=== PATIENT | male | born 1990 | race Caucasian/White ===

== ENCOUNTER 2017-08-24 21:46 | Emergency (ER) | payer SELFPAY ==
[~2017-08-24] VITALS: Ht 167.6 cm; Wt 81.6 kg
[~2017-08-24 21:46] MED LIST: CIPR500T78 PO; HYDR-3714 PO; HYDR-757 PO; METR500T PO; SULF1TAB35 PO
--- OUTSIDE RECORDS SUMMARY | 2017-08-24 21:52 | XMS REPORT ---
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 Info Not Available Non Drug Allergy Problems Problem Type Condition Code Onset Dates Condition Status Problem Pilonidal cyst with abscess 685.0 Active Problem Inguinal hernia without mention of obstruction or gangrene, unilateral or unspecified, (not specified as recurrent) 550.90 Active Problem Pilonidal cyst without mention of abscess 685.1 Active Assessment Tinea cruris B35.6 Active Assessment STD exposure Z20.2 Active Medications No Known Medications Procedures Procedure Coding System Code Date Office Visit, Est Pt., Level 3 CPT-4 43884 Sep 15, 2015 Vital Signs Date/Time: Sep 15, 2015 Temperature 98.9 F Weight 182.4 lbs Height 67 in BMI 28.56 Index Blood Pressure Diastolic 86 mmHg Blood Pressure Systolic 130 mmHg Cardiac Monitoring Heart Rate 112 bpm Results No Known Results Summary Purpose eClinicalWorks Submission
--- OUTSIDE RECORDS SUMMARY | 2017-08-24 21:53 | XMS REPORT | Continuity of Care Document ---
Author Author [facility] Address Unknown Phone Unavailable Allergies There is no data. Medications There is no data. Problems Date Dx Coded Attending Type Code Diagnosis Diagnosed By 08/31/2012 685.1 PILONIDAL CYST 08/31/2012 LAUREL ALLEN DO 685.1 PILONIDAL CYST 02/20/2014 LAUREL ALLEN DO 550.90 UNILATERAL OR UNSPECIFIED INGUINAL HERNIA WITHOUT OBSTRUCTION OR GANGRENE 02/20/2014 LAUREL ALLEN DO 685.0 PILONIDAL CYST WITH ABSCESS Procedures Code Description Performed By Performed On GENERAL GRUPO CAIN 02/20/2014 Results There is no data. Encounters ACCT No. Visit Date/Time Discharge Status Pt. Type Provider Facility Loc./Unit Complaint [id number] 02/20/2014 13:41:00 02/20/2014 23:59:59 [facility] Outpatient LAUREL ALLEN DO [id number] 08/31/2012 13:25:00 08/31/2012 23:59:59 [facility] Outpatient
--- NOTE | 2017-08-24 22:24 | ED GU-Male ---
General Stated Complaint: SWOLLEN TESTICLE Source: patient Exam Limitations: no limitations History of Present Illness Time seen by provider: 22:12 Initial Comments Patient present to ER by private conveyance with a chief complaint that about 1 daily started having some swelling and pain in his left testicle. He said several years ago he had a mass in his scrotum and was diagnosed as an inguinal hernia and he had it repaired. No other surgical or past medical history significant. He is not having any fevers, chills, nausea, vomiting, diarrhea, constipation, dysuria, discharge. He is sexually active with women only and uses a condom sometimes. None of his partners have told him that they have an STD. Allergies and Home Medications Allergies Coded Allergies: No Known Drug Allergies (Unverified , 10/28/14) Home Medications No Active Prescriptions or Reported Meds Constitutional: No chills, No diaphoresis, No fever, No malaise Respiratory: No cough, No short of breath Cardiovascular: No chest pain, No palpitations Gastrointestinal: No abdominal pain, No constipation, No diarrhea, No nausea, No vomiting Genitourinary: see HPI, denies burning, denies discharge, denies dysuria, pain (left testicle with swelling) Musculoskeletal: No back pain, No joint pain Skin: No pruritus, No rash Psychiatric/Neurological: Denies Headache, Denies Numbness, Denies Paresthesia Past Xjhhxgc-Kxjuyl-Jrpzss Hx Patient Social History Alcohol Use: Denies Use Recreational Drug Use: Yes (marijuana regularly and methamphetamine last use approximately 2 weeks ago.) Smoking Status: Current Everyday Smoker Type Used: Cigarettes (0.5 ppd) Recent Foreign Travel: No Contact w/Someone Who Travel: No Recent Hopitalizations: No Seasonal Allergies Seasonal Allergies: No Reproductive System Hx Reproductive Disorders: No Physical Exam Vital Signs Vital Sign - Last 12Hours 08/24/17 22:10 Temp 99.0 Pulse 120 Resp 18 B/P (MAP) 146/99 (115) Pulse Ox 99 O2 Delivery Room Air Capillary Refill : General Appearance: WD/WN, no apparent distress HEENT: PERRL/EOMI, pharynx normal Gastrointestinal: non tender, soft Male: inguinal tenderness (left inguinal turning sander tender but no palpable mass on either side on Valsalva maneuver.), testicular tenderness (left), other (penis is uncircumcised, normal without discharge, tenderness, erythema or lesion. Right testes unremarkable scrotum unremarkable and left testicle is firm swollen and tender with no palpable fluctuance, seroma, seminoma etc. palpable.) Back: normal inspection, no CVA tenderness Neurologic/Psychiatric: alert, normal mood/affect, oriented x 3 Skin: normal color, warm/dry Lymphatic: no adenopathy Progress/Results/Core Measures Suspected Sepsis SIRS Temperature: Pulse: Respiratory Rate: Laboratory Tests 08/24/17 22:20: White Blood Count 17.8H Blood Pressure / Mean: Laboratory Tests 08/24/17 22:20: Creatinine 0.76, Platelet Count 265, Total Bilirubin 0.8 Results/Orders Lab Results Laboratory Tests Test 08/24/17 22:18 08/24/17 22:20 Range/Units Urine Color YELLOW Urine Clarity CLEAR Urine pH 6 5-9 Urine Specific [place] 1.020 1.016-1.022 Urine Protein NEGATIVE NEGATIVE Urine Glucose (UA) NEGATIVE NEGATIVE Urine Ketones NEGATIVE NEGATIVE Urine Nitrite NEGATIVE NEGATIVE Urine Bilirubin NEGATIVE NEGATIVE Urine Urobilinogen 1 NORMAL MG/DL Urine Leukocyte Esterase 1+ H NEGATIVE Urine RBC (Auto) 1+ H NEGATIVE Urine RBC 0-2 /HPF Urine WBC 5-10 H /HPF Urine Crystals NONE /LPF Urine Bacteria TRACE /HPF Urine Casts NONE /LPF Urine Mucus SMALL H /LPF Urine Culture Indicated YES White Blood Count 17.8 H 4.3-11.0 10^3/uL Red Blood Count 5.12 4.35-5.85 10^6/uL Hemoglobin 15.6 13.3-17.7 G/DL Hematocrit 44 40-54 % Mean Corpuscular Volume 85 80-99 FL Mean Corpuscular Hemoglobin 31 25-34 PG Mean Corpuscular Hemoglobin Concent 36 32-36 G/DL Red Cell Distribution Width 13.4 10.0-14.5 % Platelet Count 265 130-400 10^3/uL Mean Platelet Volume 10.3 7.4-10.4 FL Neutrophils (%) (Auto) 75 42-75 % Lymphocytes (%) (Auto) 13 12-44 % Monocytes (%) (Auto) 11 0-12 % Eosinophils (%) (Auto) 1 0-10 % Basophils (%) (Auto) 0 0-10 % Neutrophils # (Auto) 13.3 H 1.8-7.8 X 10^3 Lymphocytes # (Auto) 2.3 1.0-4.0 X 10^3 Monocytes # (Auto) 2.0 H 0.0-1.0 X 10^3 Eosinophils # (Auto) 0.1 0.0-0.3 10^3/uL Basophils # (Auto) 0.1 0.0-0.1 10^3/uL Neutrophils % (Manual) 78 % Lymphocytes % (Manual) 10 % Monocytes % (Manual) 10 % Band Neutrophils 2 % Blood Morphology Comment NORMAL Sodium Level 140 135-145 MMOL/L Potassium Level 3.6 3.6-5.0 MMOL/L Chloride Level 103 98-107 MMOL/L Carbon Dioxide Level 24 21-32 MMOL/L Anion Gap 13 5-14 MMOL/L Blood Urea Nitrogen 8 7-18 MG/DL Creatinine 0.76 0.60-1.30 MG/DL Estimat Glomerular Filtration Rate > 60 BUN/Creatinine Ratio 11 Glucose Level 108 H 70-105 MG/DL Calcium Level 9.5 8.5-10.1 MG/DL Total Bilirubin 0.8 0.1-1.0 MG/DL Aspartate Amino Transf (AST/SGOT) 13 5-34 U/L Alanine Aminotransferase (ALT/SGPT) 17 0-55 U/L Alkaline Phosphatase 90 40-136 U/L C-Reactive Protein High Sensitivity 12.47 H 0.00-0.50 MG/DL Total Protein 7.8 6.4-8.2 GM/DL Albumin 4.3 3.2-4.5 GM/DL My Orders Orders - JAYDA BOSWELL Ua Culture If Indicated (08/24/17 22:01) Cbc With Automated Diff (08/24/17 22:17) Comprehensive Metabolic Panel (08/24/17 22:17) Us Scrotum (Testicle) [id number] (08/24/17 22:17) Hs C Reactive Protein (08/24/17 22:17) Ketorolac Injection (Toradol Injection) (08/24/17 22:30) Neisseria Gonorrhea Dna (08/24/17 22:24) Chlamydia Dna Urine Test (08/24/17 22:24) Manual Differential (08/24/17 22:20) Urine Culture (08/24/17 22:18) Medications Given in ED Current Medications Medications Dose Ordered Sig/Joselyn Route Start Time Stop Time Status Last Admin Dose Admin Ketorolac Tromethamine 30 mg ONCE ONCE IM 08/24/17 22:30 08/24/17 22:31 DC 08/24/17 22:26 30 MG Vital Signs/I&O Vital Sign - Last 12Hours 08/24/17 22:10 Temp 99.0 Pulse 120 Resp 18 B/P (MAP) 146/99 (115) Pulse Ox 99 O2 Delivery Room Air Capillary Refill : Progress Note : Time: 22:22 Progress Note We will order an ultrasound of his scrotum and get some blood work looking for acute evidence of bacterial infection such as orchitis. We'll also get a gonorrhea and chlamydia tests sent out. Urinalysis. Patient's tachycardia seems to be due to his anxiety and pain. We'll give him some Toradol IM and some time and see if his vital signs stabilized. He is afebrile. Diagnostic Imaging Diagonstic Imaging: Ultrasound Plain Films/CT/US/NM/MRI: other (scrotum) Comments Left epididymitis. No testicular torsion. Reviewed: Reviewed by Me Departure Impression Impression: Primary Impression: Epididymitis, left Disposition: 01 HOME, SELF-CARE Condition: Improved Departure-Patient Inst. Decision time for Depature: 00:43 Referrals: NO,LOCAL PHYSICIAN (PCP/Family) Primary Care Physician Patient Instructions: Epididymitis (DC) Add. Discharge Instructions: Drink plenty of fluids use Tylenol 1000 mg every 8 hours as needed as well as ibuprofen 800 mg every 8 hours as needed for pain. He may ice the testes for 10 minutes every 4 hours as needed for pain. If this does not control your pain you may also take one tablet of hydrocodone every 6 hours as needed. If not seeing some improvement by 3-4 days follow-up with your primary care physician or return to the ER for further evaluation. Scripts Hydrocodone Bit/Acetaminophen (Hydrocodone/Acetaminophen 5/325mg Tablet) 1 Tab Tab 1-2 EACH PO Q6H Y for BREAKTHROUGH PAIN, #15 TAB 0 Refills Prov: JAYDA BOSWELL 08/25/17 JAYDA BOSWELL Aug 24, 2017 22:24
[2017-08-24 22:27] LABS: BASOPHILS # (AUTO) 0.1 10^3/uL (0.0-0.1); BASOPHILS % (AUTO) 0 % (0-10); EOSINOPHILS # (AUTO) 0.1 10^3/uL (0.0-0.3); EOSINOPHILS % (AUTO) 1 % (0-10); HEMATOCRIT 44 % (40-54); HEMOGLOBIN 15.6 G/DL (13.3-17.7); LYMPHOCYTES # (AUTO) 2.3 X 10^3 (1.0-4.0); LYMPHOCYTES % (AUTO) 13 % (12-44); MEAN CORPUSCULAR HEMOGLOBIN 31 PG (25-34); MEAN CORPUSCULAR HGB CONC 36 G/DL (32-36); MEAN CORPUSCULAR VOLUME 85 FL (80-99); MEAN PLATELET VOLUME 10.3 FL (7.4-10.4); MONOCYTES % (AUTO) 11 % (0-12); NEUTROPHILS # (AUTO) 13.3 X 10^3 (1.8-7.8); NEUTROPHILS % (AUTO) 75 % (42-75); PLATELET COUNT 265 10^3/uL (130-400); RED BLOOD COUNT 5.12 10^6/uL (4.35-5.85); RED CELL DISTRIBUTION WIDTH 13.4 % (10.0-14.5); WHITE BLOOD COUNT 17.8 10^3/uL (4.3-11.0)
[2017-08-24 22:29] LABS: BILIRUBIN,URINE NEGATIVE (NEGATIVE); CLARITY,URINE CLEAR; COLOR,URINE YELLOW; GLUCOSE, URINE (UA) NEGATIVE (NEGATIVE); KETONES,URINE NEGATIVE (NEGATIVE); LEUKOCYTE ESTERASE ,URINE 1+ (NEGATIVE); NITRITE,URINE NEGATIVE (NEGATIVE); PH,URINE 6 (5-9); PROTEIN,URINE NEGATIVE (NEGATIVE); UROBILINOGEN,URINE 1 MG/DL (NORMAL)
[2017-08-24] MEDS ORDERED: KETOROLAC 30 MG/ML VIAL IM ONE (22:30)
[2017-08-24 22:45] LABS: ALANINE AMINOTRANSFERASE 17 U/L (0-55); ALBUMIN 4.3 GM/DL (3.2-4.5); ALKALINE PHOSPHATASE 90 U/L (40-136); BILIRUBIN,TOTAL 0.8 MG/DL (0.1-1.0); BUN/CREATININE RATIO 11; CALCIUM 9.5 MG/DL (8.5-10.1); CARBON DIOXIDE 24 MMOL/L (21-32); CHLORIDE 103 MMOL/L (98-107); CREATININE SERUM 0.76 MG/DL (0.60-1.30); GFR ESTIMATED > 60; GLUCOSE 108 MG/DL (70-105); POTASSIUM 3.6 MMOL/L (3.6-5.0); SODIUM 140 MMOL/L (135-145); TOTAL PROTEIN 7.8 GM/DL (6.4-8.2)
[2017-08-24 22:46] LABS: BACTERIA,URINE TRACE /HPF; RBC,URINE 0-2 /HPF
[2017-08-24 22:58] LABS: BAND NEUTROPHILS 2 %; LYMPHOCYTES % (MANUAL) 10 %; MONOCYTES % (MANUAL) 10 %; NEUTROPHILS % (MANUAL) 78 %; RBC MORPH NORMAL
[2017-08-25] MEDS ORDERED: ACHD5005 PO (00:44)
[2017-08-25] MEDS ORDERED: AZITHROMYCIN 250 MG TAB (ZITHROMAX) PO SCH (00:45)
[2017-08-25] MEDS ORDERED: cefTRIAXone 1 GM (ROCEPHIN) VIAL ONE (00:45)
[2017-08-25] MEDS ORDERED: cefTRIAXone 250 MG (ROCEPHIN) VIAL IM ONE (00:45)
[2017-08-25] MEDS ORDERED: LIDOCAINE 1% INJ 20 ML (XYLOCAINE) VIAL INJ ONE (00:45)
[2017-08-25] MEDS ORDERED: LIDOCAINE 1% INJ 50 ML (XYLOCAINE) VIAL ONE (00:46)
[2017-08-25 00:56] VITALS: BP 132/88
--- NOTE | 2017-08-25 06:58 | Diagnostic Imaging Report ---
Scrotal ultrasound. INDICATION: Left testicular pain. Spectral and color flow imaging of the testicles was performed. There are no prior studies available for comparison. FINDINGS: Both testicles were identified. Right testicle measures 4.2 x 2.2 x 2.3 cm while left testicle is estimated to be 3.6 x 2.4 x 2.9 cm. There is no evidence for solid testicular mass and there is no sign of torsion. There is increased vascularity associated with the epididymis on the left and the epididymis does appear to be enlarged. These findings would be consistent with acute epididymitis. The epididymis on the right is unremarkable. There is no significant hydrocele formation. IMPRESSION: 1. There is no evidence for a solid testicular mass and there is no sign of torsion. 2. The appearance of the left epididymis does suggest epididymitis. Clinical followup is recommended. Dictated by: Dictated on workstation # [id number]
== END 2017-08-25 00:55 | disposition home or self-care (01) ==
LOC: EDUNIT# 21:46 → ER 21:49
DX: N45.1 Epididymitis (principal); F12.10 Cannabis abuse, uncomplicated; F15.10 Other stimulant abuse, uncomplicated; F17.210 Nicotine dependence, cigarettes, uncomplicated
CPT/HCPCS: 36415; 76870; 80053; 81000; 85007; 85027; 86141; 87088; 87491; 87591; 99284

== ENCOUNTER 2017-10-25 01:38 | Emergency (ER) | payer SELFPAY ==
[~2017-10-25] VITALS: Ht 167.6 cm; Wt 81.6 kg
[~2017-10-25 01:38] MED LIST changes: +ACHD5005 PO
--- OUTSIDE RECORDS SUMMARY | 2017-10-25 01:46 | XMS REPORT | Continuity of Care Document ---
Author Author [facility] Address Unknown Phone Unavailable Allergies There is [...] Status Pt. Type Provider Facility Loc./Unit Complaint [id number] 02/20/2014 13:41:00 02/20/2014 23:59:59 [facility] Outpatient LAUREL ALLEN DO [id number] 08/31/2012 13:25:00 08/31/2012 23:59:59 [facility] Outpatient
[2017-10-25] MEDS ORDERED: LIDOCAINE 1% INJ 50 ML (XYLOCAINE) VIAL IJ ONE (02:30)
[2017-10-25] MEDS ORDERED: KETOROLAC 30 MG/ML VIAL IM ONE (02:30)
--- NOTE | 2017-10-25 02:47 | ED Integumentary General ---
General Chief Complaint: Skin/Wound Problems Stated Complaint: ABSCESS ON LEFT BUTTOCK Nursing Triage Note: PT REPORTS PYLONIDAL CYST. Source: patient Exam Limitations: no limitations History of Present Illness Date Seen by Provider: Oct 25, 2017 Time Seen by Provider: 02:30 Initial Comments Patient presents to the ER by private conveyance with a chief complaint of pain and feeling a little wetness and swelling between his gluteal cleft where he has a history of pilonidal cyst/abscess is. He is not having any fever, chills, nausea, vomiting, diarrhea, dysuria. He's had this drained 4-5 times in the past with the last time being several months ago. He has not been to general surgery. He says when it comes on usually goes to the ER to have it drained. He does not have allergies to antibiotics. He does not smoke cigarettes. Allergies and Home Medications Allergies Coded Allergies: No Known Drug Allergies (Unverified , 10/28/14) Home Medications Hydrocodone Bit/Acetaminophen 1 Tab Tab, 1-2 EACH PO Q6H PRN for BREAKTHROUGH PAIN Prescribed by: JAYDA BOSWELL on 08/25/17 0044 Constitutional: No chills, No diaphoresis, No fever EENTM: No ear discharge, No ear pain Respiratory: No cough, No phlegm Cardiovascular: No chest pain, No palpitations Gastrointestinal: No abdominal pain, No constipation, No diarrhea, No nausea Genitourinary: No discharge, No dysuria Past Znungup-Yrmpxi-Ivhhtl Hx Patient Social History Alcohol Use: Denies Use Recreational Drug Use: No Drug of Choice: CANNIBUS, METH Smoking Status: Current Everyday Smoker Type Used: Cigarettes Recent Foreign Travel: No Contact w/Someone Who Travel: No Recent Infectious Disease Expo: No Recent Hopitalizations: No Immunizations Up To Date Tetanus Booster (TDap): Unknown Seasonal Allergies Seasonal Allergies: No Surgeries History of Surgeries: No Respiratory History of Respiratory Disorde: No Cardiovascular History of Cardiac Disorders: No Neurological History of Neurological Disord: No Reproductive System Hx Reproductive Disorders: No Genitourinary History of Genitourinary Disor: No Gastrointestinal History of Gastrointestinal Di: No Musculoskeletal History of Musculoskeletal Dis: No Endocrine History of Endocrine Disorders: No HEENT History of HEENT Disorders: No Cancer History of Cancer: No Psychosocial History of Psychiatric Problem: No Integumentary History of Skin or Integumenta: Yes (PILONIDIAL ABSCESS I&D) Blood Transfusions History of Blood Disorders: No Physical Exam Vital Signs Vital Signs - First Documented 10/25/17 02:15 Temp 98.0 Pulse 74 Resp 16 B/P (MAP) 133/72 (92) Pulse Ox 99 O2 Delivery Room Air Capillary Refill : Less Than 3 Seconds General Appearance: WD/WN, no apparent distress HEENT: PERRL/EOMI, pharynx normal Cardiovascular: normal peripheral pulses, regular rate, rhythm Respiratory: chest non-tender, lungs clear Gastrointestinal: normal bowel sounds, non tender, soft Neurologic/Psychiatric: alert, oriented x 3 Skin: other (pilonidal cyst in the superior gluteal cleft with 2 pores about drain purulent material and mild surrounding erythematous tissue.) I&D : Blade Size: 11 I & D Procedure: betadine prep (chlorhexidine soap water) Progress Wounds were cleaned thoroughly with physical debridement, chlorhexidine and then Betadine swabs. The wound was then infiltrated around the pore with 4 cc of 1% lidocaine and no epinephrine. When the patient was found to be numb and 11 blade scalpel was easily passed through the pore draining minimal purulent material. A cotton tip swab was used to attempt to break up any loculations the patient was not tolerating any further probing. A second pore was opened with a cross diggs incision using 11 blade and no purulence drained. Loose gauze dressing was placed and the patient tolerated the procedure well. Progress/Results/Core Measures Results/Orders My Orders Orders - JAYDA BOSWELL Lidocaine 1% (Xylocaine 1%) (10/25/17 02:30) Ketorolac Injection (Toradol Injection) (10/25/17 02:30) Vital Signs/I&O Vital Sign - Last 12Hours 10/25/17 02:15 Temp 98.0 Pulse 74 Resp 16 B/P (MAP) 133/72 (92) Pulse Ox 99 O2 Delivery Room Air Blood Pressure Mean: 92 Progress Note : Time: 02:54 Progress Note Unable to get satisfactory drainage and satisfactory anesthesia. We'll refer to the general surgeon on-call. Departure Impression Impression: Primary Impression: Infected pilonidal cyst Disposition: 01 HOME, SELF-CARE Condition: Stable Departure-Patient Inst. Decision time for Depature: 02:54 Referrals: NO,LOCAL PHYSICIAN (PCP) Primary Care Physician Patient Instructions: Pilonidal Cyst (DC) Add. Discharge Instructions: This morning at 8:[address] Brower, general surgeon at [phone] today to set up a incision and drainage of your pilonidal cyst. supervisor pre wave the antibiotics and take one tablet twice a day to completion to prevent worsening infection. Use the pain medicine one tablet every 6 hours as needed in addition to ibuprofen 800 mg every 8 hours. All discharge instructions reviewed with patient and/or family. Voiced understanding. Scripts Sulfamethoxazole/Trimethoprim (Bactrim Ds Tablet) 1 Each Tablet 1 EACH PO BID for 7 Days, #14 TAB 0 Refills Prov: JAYDA BOSWELL 10/25/17 Hydrocodone Bit/Acetaminophen (Hydrocodone/Acetaminophen 5/325mg Tablet) 1 Tab Tab 1 EACH PO Q6H Y for BREAKTHROUGH PAIN, #10 TAB 0 Refills Prov: JAYDA BOSWELL 10/25/17 Work/School Note: Work Release Form Date Seen in the Emergency Department: Oct 25, 2017 Return to Work: Oct 29, 2017 Restrictions: No Restrictions Copy Copies To 1: SHERRI BROWER MD, TITUS J Oct 25, 2017 02:47
[2017-10-25] MEDS ORDERED: SULF1TAB35 PO (02:57)
[2017-10-25] MEDS ORDERED: ACHD5005 PO (02:57)
[2017-10-25 03:05] VITALS: BP 133/72
== END 2017-10-25 03:05 | disposition home or self-care (01) ==
LOC: EDUNIT# 01:38 → ER 01:42
DX: L05.01 Pilonidal cyst with abscess (principal); F15.10 Other stimulant abuse, uncomplicated; F12.10 Cannabis abuse, uncomplicated; F17.210 Nicotine dependence, cigarettes, uncomplicated
CPT/HCPCS: 96372